=== PATIENT | female | born 1975 | race Caucasian/White ===

== ENCOUNTER → 2023-09-25 13:33 | Outpatient (REF) | payer BC, SELFPAY | LOC: WDC 13:33 | PROVIDERS: ATTENDING PHYSICIAN Family Medicine | DX: Z12.31 Encounter for screening mammogram for malignant neoplasm of breast (principal) | CPT/HCPCS: 77063; 77067 ==

== ENCOUNTER → 2024-10-14 08:09 | Outpatient (REF) | payer BC, SELFPAY | LOC: WDC 08:09 | PROVIDERS: ATTENDING PHYSICIAN Family Medicine | DX: Z12.31 Encounter for screening mammogram for malignant neoplasm of breast (principal) | CPT/HCPCS: 77063; 77067 ==